=== PATIENT | male | born 1965 | race Caucasian/White ===

== ENCOUNTER 2023-04-11 16:06 | Emergency (ER) | payer OTHER, SELFPAY ==
[2023-04-11] MEDS ORDERED: Ibuprofen 200 MG TAB ONE (17:59)
== END 2023-04-11 19:18 | disposition home or self-care (01) ==
LOC: CSHERS 16:06
DX: S52.572A Other intraarticular fracture of lower end of left radius, initial encounter for closed fracture (principal); I10 Essential (primary) hypertension; W18.30XA Fall on same level, unspecified, initial encounter; Z79.82 Long term (current) use of aspirin